=== PATIENT | female | born 1955 | race Caucasian/White ===

== ENCOUNTER 2018-08-28 17:14 | Emergency (ER) | payer BC ==
[~2018-08-28] VITALS: Ht 149.9 cm; Wt 73.3 kg
[2018-08-28] MEDS ORDERED: ONDANSETRON ODT 4 MG PO ONE ×2 (17:30→19:00)
[2018-08-28] MEDS ORDERED: MAALOX/HYOSCYAMINE/LIDOCAINE 45 ML BTL PO ONE (17:30)
[2018-08-28 17:39] LABS: BASOPHILS # (AUTO) 0.05 x10^3/uL (0-0.1); BASOPHILS % (AUTO) 1 % (0-1); EOSINOPHILS # (AUTO) 0.17 x10^3/uL (0-0.4); EOSINOPHILS % (AUTO) 2 % (1-7); LYMPHOCYTES # (AUTO) 2.33 x10^3/uL (1-3.4); LYMPHOCYTES % (AUTO) 26 % (22-44); MD NO; MEAN CORPUSCULAR HEMOGLOBIN 31.4 pg (27.0-34.8); MEAN CORPUSCULAR HGB CONC 34.4 g/dL (32.4-35.8); MEAN CORPUSCULAR VOLUME 91.4 fL (80-100); MONOCYTES # (AUTO) 0.59 x10^3/uL (0.2-0.8); MONOCYTES % (AUTO) 7 % (2-9); NEUTROPHILS # (AUTO) 5.95 x10^3/uL (1.8-6.8); NEUTROPHILS % (AUTO) 65 % (42-75); PLATELET COUNT 244 x10^3/uL (130-400); RED BLOOD COUNT 4.79 x10^6/uL (3.82-5.3); RED CELL DISTRIBUTION WIDTH 13.4 % (9.6-15.2)
[2018-08-28 17:51] LABS: ANION GAP 10 mmol/L (5-15); CALCIUM 9.6 mg/dL (8.5-10.1); CHLORIDE 105 mmol/L (98-107)
[2018-08-28 17:54] LABS: ALANINE AMINOTRANSFERASE 141 U/L (12-78); ALKALINE PHOSPHATASE 107 U/L (45-117); BILIRUBIN,TOTAL 1.3 mg/dL (0.2-1.0); CREATININE 0.83 mg/dL (0.55-1.02); TOTAL PROTEIN 7.7 g/dL (6.4-8.2)
[2018-08-28] MEDS ORDERED: ONDANSETRON ODT 4 MG ONE (18:09)
[2018-08-28] MEDS ORDERED: MAALOX/HYOSCYAMINE/LIDOCAINE 45 ML BTL ONE ×2 (18:09→19:06)
[2018-08-28 18:23] LABS: MICROSCOPIC NOT IND
[2018-08-28 18:25] LABS: CULTURE INDICATED? NO
[2018-08-28 18:35] VITALS: BP 135/79
[2018-08-28] MEDS ORDERED: SODIUM CHLORIDE FLUSH 10ML SYR IVF ONE (19:00)
[2018-08-28] MEDS ORDERED: MORPHINE SULFATE 4 MG/ML, 1ML IVPush PRN (19:00)
[2018-08-28] MEDS ORDERED: MORPHINE SULFATE 4 MG/ML, 1ML ONE (19:06)
== END 2018-08-28 20:01 | disposition home or self-care (01) ==
LOC: ED 18:04
DX: K29.00 Acute gastritis without bleeding (principal); E11.9 Type 2 diabetes mellitus without complications; Z90.49 Acquired absence of other specified parts of digestive tract; Z90.710 Acquired absence of both cervix and uterus
CPT/HCPCS: 36415; 76700; 80053; 81003; 83690; 85025; 96374; 99285; Q0162

== ENCOUNTER → 2018-08-31 | Outpatient (CLI) | payer BC | END | disposition home or self-care (01) | LOC: CFH 13:09 | PROVIDERS: ATTEND Family Medicine | DX: N64.89 Other specified disorders of breast (principal) | CPT/HCPCS: 77066 ==

== ENCOUNTER 2019-06-18 15:15 | Outpatient (CLI) | payer BC | END 2019-06-18 23:59 | disposition home or self-care (01) | LOC: CFH 15:15 | PROVIDERS: ATTEND Internal Medicine Cardiovascular Disease | DX: I08.8 Other rheumatic multiple valve diseases (principal); E11.9 Type 2 diabetes mellitus without complications | CPT/HCPCS: 93306 ==

== ENCOUNTER 2019-11-15 08:55 | Emergency (ER) | payer BC ==
[~2019-11-15] VITALS: Ht 149.9 cm; Wt 71.8 kg
[2019-11-15 08:57] VITALS: BP 151/71
--- NOTE | 2019-11-15 09:06 | NUR ---
Pt refusing wheelchair at this time.
--- NOTE | 2019-11-15 09:50 | NUR ---
PT HAS BEEN DIZZY SINCE HITTING HEAD APPROX A WEEK AGO. DIZZINESS WORSE TODAY. ADDITIONALLY HAS AN ABCESS IN MOUTH THAT SHE BEEN ON ANTIBIOTICS SINCE FRIDAY AND SHE BELIEVES IS IMPROVING.
[2019-11-15] MEDS ORDERED: MECLIZINE CHEWABLE 25 MG TAB ONE (09:52)
[2019-11-15] MEDS ORDERED: MECLIZINE CHEWABLE 25 MG TAB PO ONE (10:00)
[2019-11-15 10:05] LABS: BASOPHILS # (AUTO) 0.04 x10^3/uL (0-0.1); BASOPHILS % (AUTO) 1 % (0-1); EOSINOPHILS # (AUTO) 0.18 x10^3/uL (0-0.4); EOSINOPHILS % (AUTO) 3 % (1-7); LYMPHOCYTES # (AUTO) 2.08 x10^3/uL (1-3.4); LYMPHOCYTES % (AUTO) 35 % (22-44); MD NO; MEAN CORPUSCULAR HEMOGLOBIN 31.1 pg (27.0-34.8); MEAN CORPUSCULAR HGB CONC 33.4 g/dL (32.4-35.8); MEAN CORPUSCULAR VOLUME 93.3 fL (80-100); MEAN PLATELET VOLUME 8.1 fL (7.4-10.4); MONOCYTES # (AUTO) 0.37 x10^3/uL (0.2-0.8); MONOCYTES % (AUTO) 6 % (2-9); NEUTROPHILS # (AUTO) 3.32 x10^3/uL (1.8-6.8); NEUTROPHILS % (AUTO) 55 % (42-75); PLATELET COUNT 230 x10^3/uL (130-400); RED BLOOD COUNT 4.44 x10^6/uL (3.82-5.3); RED CELL DISTRIBUTION WIDTH 13.6 % (9.6-15.2)
[2019-11-15 10:15] LABS: ALBUMIN 3.3 g/dL (3.4-5.0); ANION GAP 7 mmol/L (5-15); CALCIUM 8.5 mg/dL (8.5-10.1); CHLORIDE 106 mmol/L (98-107); CREATININE 0.75 mg/dL (0.55-1.02)
--- NOTE | 2019-11-15 10:15 | NUR ---
AFTER AMBULATING WITH ASSISTANCE TO BATHROOM TO PROVIDE URINE SAMPLE, PT OFF FLOOR TO CT VIA [facility]
[2019-11-15 10:18] LABS: TROPONIN I < 0.015 ng/mL (0.000-0.045)
[2019-11-15 10:29] LABS: MICROSCOPIC NOT IND
--- NOTE | 2019-11-15 10:55 | NUR ---
MD AT BEDSIDE DISCUSSING RESULTS/POC.
== END 2019-11-15 11:12 | disposition home or self-care (01) ==
LOC: ED 11:05
DX: R42 Dizziness and giddiness (principal); E11.9 Type 2 diabetes mellitus without complications
CPT/HCPCS: 36415; 70450; 80048; 81003; 82040; 84484; 85025; 93005; 99284

== ENCOUNTER → 2020-09-11 | Outpatient (CLI) | payer BC | END | disposition home or self-care (01) | LOC: CFH 14:07 | PROVIDERS: ATTEND Family Medicine | DX: R92.1 Mammographic calcification found on diagnostic imaging of breast (principal); N64.4 Mastodynia; R92.2 Inconclusive mammogram | CPT/HCPCS: 76642; 77066; G0279 ==

== ENCOUNTER → 2021-01-26 | Outpatient (CLI) | payer BC ==
[~2021-01-26] MED LIST: OMNIPAQUE 350 MG/ML, 100ML BOTTLE ONE
== END | disposition home or self-care (01) ==
LOC: CFH 09:55
PROVIDERS: ATTEND Internal Medicine
DX: K57.30 Diverticulosis of large intestine without perforation or abscess without bleeding (principal); K59.00 Constipation, unspecified; J98.4 Other disorders of lung; Z90.49 Acquired absence of other specified parts of digestive tract
CPT/HCPCS: 74177; Q9967

== ENCOUNTER → 2021-02-21 | Outpatient (CLI) | payer BC | END | disposition home or self-care (01) | LOC: CFH 06:47 | PROVIDERS: ATTEND Internal Medicine Cardiovascular Disease | DX: I08.3 Combined rheumatic disorders of mitral, aortic and tricuspid valves (principal); I10 Essential (primary) hypertension | CPT/HCPCS: 78452; 93017; 93306; A9502 ==